=== PATIENT | female | born 1970 | race Caucasian/White ===

== ENCOUNTER 2023-09-05 15:21 | Emergency (ER) | payer OTHER ==
[2023-09-05 15:47] VITALS: BP 142/96; PULSE 89; RESP 18; TEMP 98.8; BMI 28.8
[2023-09-05 16:42] LABS: HEMATOCRIT 40.1 % (32.4-45.2); HEMOGLOBIN 13.3 G/dL (10.7-15.3); MCH 31.6 pg (25.7-33.7); MCHC 33.2 g/dl (32.0-36.0); MEAN CELL VOLUME 95.2 fl (80-96); MEAN PLT VOLUME 8.6 fl (7.5-11.1); PLATELET COUNT 337.8 10^3/uL (134-434); RBC 4.21 10^6/uL (3.60-5.2); RDW 13.7 % (11.6-15.6); WHITE BLOOD COUNT 8.6 10^3/uL (4.0-10.8)
[2023-09-05 17:03] LABS: ALBUMIN 4.2 g/dl (3.4-5.0); ALK PHOS 52 U/L (45-117); ANION GAP 9 mmol/L (4-13); BILIRUBIN,TOTAL 0.6 mg/dl (0.2-1); CALCIUM 9.6 mg/dl (8.5-10.1); CHLORIDE 104 mmol/L (98-107); CO2 24 mmol/L (21-32); CREATININE 0.7 mg/dl (0.6-1.3); GLUCOSE,RANDOM 97 mg/dl (74-106); POTASSIUM 4.4 mmol/L (3.5-5.1); SGOT/AST 15 U/L (15-37); SGPT/ALT 19 U/L (7-52); SODIUM 137 mmol/L (136-145); TOT PROT 6.6 g/dl (6.4-8.2)
[2023-09-05 17:04] LABS: PLATELET ESTIMATE ADEQUATE
== END 2023-09-05 18:22 | disposition home or self-care (01) ==
LOC: FER 15:21
DX: R07.89 Other chest pain (principal); R00.2 Palpitations
CPT/HCPCS: 36415; 71045-TC-FY; 80053; 84484; 85027; 93005; 99285-25